=== PATIENT | male | born 1975 | race African-American/Black ===

== ENCOUNTER 2023-07-28 18:26 | Observation (INO) | payer SELFPAY ==
[2023-07-28] VITALS (7 sets, daily range): BP systolic 117–170; BP diastolic 69–87; PULSE 72–98; RESP 13–20; TEMP 36.7–37.3; O2SAT 95–98; BMI 36.2; BMI 36.1
--- NOTE | 2023-07-28 18:26 | ECG_ITS ---
APPROVED REPORT Exam: Resting ECG HR:97 bpm ECG Measurements Heart Rate 97 AXES MT 154 P 59 QRSd 105 QRS -74 QT 336 T 103 QTc 391 Conclusion Sinus rhythm LVH Left atrial enlargement Incomplete right bundle branch block Left anterior fascicular block Ischemic change with T wave inversions in 1 and aVL, concern for convex ST changes in V3 Electronically signed by : MARTIR DESHPANDE, 07/28/2023 20:45:46
--- NOTE | 2023-07-28 18:29 | XR_ITS ---
PROCEDURE INFORMATION: Exam: XR Chest Exam date and time: 07/28/2023 6:38 PM Age: 48 years old Clinical indication: Other: Chest pain; Additional info: Cp TECHNIQUE: Imaging protocol: Radiologic exam of the chest. Views: 1 view. COMPARISON: No relevant prior studies available. FINDINGS: Lungs: Pleuroparenchymal scarring of the lung bases with subsegmental atelectasis is present without consolidations or pleural effusions that project above the diaphragm. Pleural spaces: Unremarkable. No pleural effusion. No pneumothorax. Heart/Mediastinum: Unremarkable. No cardiomegaly. Bones/joints: Unremarkable. IMPRESSION: Pleuroparenchymal scarring of the lung bases with subsegmental atelectasis is present without consolidations or pleural effusions that project above the diaphragm.
--- NOTE | 2023-07-28 18:43 | CT_ITS ---
PROCEDURE INFORMATION: Exam: CTA Chest With Contrast Exam date and time: 07/28/2023 8:10 PM Age: 48 years old Clinical indication: Pain; Chest pressure; Additional info: Cp to back, aortic mumur TECHNIQUE: Imaging protocol: Computed tomographic angiography of the chest with contrast. Exam focused on the arteries. 3D rendering (Not supervised by radiologist): MIP and/or 3D reconstructed images were created by the technologist. Radiation optimization: All CT scans at this facility use at least one of these dose optimization techniques: automated exposure control; mA and/or kV adjustment per patient size (includes targeted exams where dose is matched to clinical indication); or iterative reconstruction. Contrast material: ISOVUE; Contrast volume: 90 ml; Contrast route: INTRAVENOUS (IV); COMPARISON: CR XR CHEST PORTABLE 07/28/2023 6:38 PM FINDINGS: Pulmonary arteries: No CT angiography evidence of pulmonary embolism. Aorta: Unremarkable. No aortic aneurysm. No aortic dissection. Lungs: Unremarkable. No consolidation. No masses. Pleural spaces: Unremarkable. No pneumothorax. No pleural effusion. Heart: Unremarkable. No cardiomegaly. No pericardial effusion. Lymph nodes: Unremarkable. No enlarged lymph nodes. Bones/joints: Multinodular thyroid goiter with right thyroid lobe measuring 12.4 cm craniocaudal by 3.8 cm AP x 4.3 cm transverse, and results in partial obstruction of the thoracic outlet, and mass effect on the trachea and right vessels exiting the thoracic outlet. Soft tissues: Unremarkable. IMPRESSION: 1. Multinodular thyroid goiter with right thyroid lobe measuring 12.4 cm craniocaudal by 3.8 cm AP x 4.3 cm transverse, and results in partial obstruction of the thoracic outlet, and mass effect on the trachea and right vessels exiting the thoracic outlet. Recommend further evaluation with ultrasound for possible FNA analysis. 2. No CT angiography evidence of pulmonary embolism.
--- NOTE | 2023-07-28 18:43 | CT_ITS ---
PROCEDURE INFORMATION: Exam: CTA Neck With Contrast Exam date and time: 07/28/2023 8:05 PM Age: 48 years old Clinical indication: Other: Confusion; Additional info: Cp confusion and BEAVERS, L leg weakness TECHNIQUE: Imaging protocol: Computed tomographic angiography of the neck with contrast. Exam focused on the cervical segments of the vasculature. 3D rendering (Not supervised by radiologist): MIP and/or 3D reconstructed images were created by the technologist. Radiation optimization: All CT scans at this facility use at least one of these dose optimization techniques: automated exposure control; mA and/or kV adjustment per patient size (includes targeted exams where dose is matched to clinical indication); or iterative reconstruction. Contrast material: ISOVUE; Contrast volume: 90 ml; Contrast route: INTRAVENOUS (IV); COMPARISON: CT ANGIO HEAD 07/28/2023 8:05 PM FINDINGS: Right common carotid artery: Moderate calcific atherosclerotic disease of the right carotid bulb without significant stenosis. Right internal carotid artery: No stenosis of the extracranial segment. No dissection or occlusion. Right external carotid artery: No occlusion or stenosis of the origin. Left common carotid artery: Moderate calcific atherosclerotic disease of the left carotid bulb without significant stenosis. Left internal carotid artery: No stenosis of the extracranial segment. No dissection or occlusion. Left external carotid artery: No occlusion or stenosis of the origin. Right vertebral artery: No stenosis. No dissection or occlusion. Left vertebral artery: No stenosis. No dissection or occlusion. Soft tissues: Normal. No significant soft tissue swelling. Bones/joints: Multinodular thyroid goiter with right thyroid lobe measuring 12.4 cm craniocaudal by 3.8 cm AP x 4.3 cm transverse, and results in partial obstruction of the thoracic outlet. IMPRESSION: 1. No significant stenosis. No evidence of dissection. 2. Multinodular thyroid goiter with right thyroid lobe measuring 12.4 cm craniocaudal by 3.8 cm AP x 4.3 cm transverse, and results in partial obstruction of the thoracic outlet. Recommend further evaluation with ultrasound for possible FNA analysis. REFERENCES: NASCET CRITERIA. The degree of stenosis in the cervical segment of the internal carotid artery is based on NASCET criteria. Normal is no stenosis. Mild is less than 50% stenosis. Moderate is 50-69% stenosis. Severe is 70% to 99% stenosis. Total occlusion is no detectable patent lumen.
--- NOTE | 2023-07-28 18:43 | CT_ITS ---
PROCEDURE INFORMATION: Exam: CTA Head With Contrast, Arteriography Exam date and time: 07/28/2023 8:05 PM Age: 48 years old Clinical indication: Other: Confusion; Additional info: Cp confusion and BEAVERS, L leg weakness TECHNIQUE: Imaging protocol: Computed tomographic angiography of the head with contrast. Exam focused on the arteries. 3D rendering (Not supervised by radiologist): MIP and/or 3D reconstructed images were created by the technologist. Radiation optimization: All CT scans at this facility use at least one of these dose optimization techniques: automated exposure control; mA and/or kV adjustment per patient size (includes targeted exams where dose is matched to clinical indication); or iterative reconstruction. Contrast material: ISOVUE; Contrast volume: 90 ml; Contrast route: INTRAVENOUS (IV); COMPARISON: CT HEAD/BRAIN WO CON 07/28/2023 8:02 PM FINDINGS: ANTERIOR CIRCULATION: Right internal carotid artery: Severe calcified and noncalcified atherosclerotic disease of the right intracranial ICA resulting in severe stenosis of the ophthalmic and clinoid segments. Right middle cerebral artery: No occlusion or significant stenosis. No aneurysm. Right anterior cerebral artery: No occlusion or significant stenosis. No aneurysm. Left internal carotid artery: Intracranial segment is patent with no significant stenosis. No aneurysm. Left middle cerebral artery: No occlusion or significant stenosis. No aneurysm. Left anterior cerebral artery: No occlusion or significant stenosis. No aneurysm. POSTERIOR CIRCULATION: Right vertebral artery: No occlusion or significant stenosis. No aneurysm. Left vertebral artery: No occlusion or significant stenosis. No aneurysm. Basilar artery: No occlusion or significant stenosis. No aneurysm. Right posterior cerebral artery: No occlusion or significant stenosis. No aneurysm. Left posterior cerebral artery: No occlusion or significant stenosis. No aneurysm. Brain: No definite mass, mass effect, or midline shift. Cerebral ventricles: No ventriculomegaly. Bones/joints: Unremarkable. No acute fracture. Soft tissues: Unremarkable. IMPRESSION: Severe calcified and noncalcified atherosclerotic disease of the right intracranial ICA resulting in severe stenosis of the ophthalmic and clinoid segments.
--- NOTE | 2023-07-28 18:43 | CT_ITS ---
PROCEDURE INFORMATION: Exam: CT Head Without Contrast Exam date and time: 07/28/2023 8:02 PM Age: 48 years old Clinical indication: Other: Confusion; Additional info: Cp confusion and BEAVERS, L leg weakness TECHNIQUE: Imaging protocol: Computed tomography of the head without contrast. Radiation optimization: All CT scans at this facility use at least one of these dose optimization techniques: automated exposure control; mA and/or kV adjustment per patient size (includes targeted exams where dose is matched to clinical indication); or iterative reconstruction. COMPARISON: No relevant prior studies available. FINDINGS: Brain: Normal. No hemorrhage. Unremarkable white matter. No mass effect. Cerebral ventricles: No ventriculomegaly. Paranasal sinuses: Visualized sinuses are unremarkable. No fluid levels. Mastoid air cells: Visualized mastoid air cells are well aerated. Bones: Unremarkable. No acute fracture. Soft tissues: Unremarkable. IMPRESSION: No acute intracranial abnormality.
[2023-07-28] MEDS: ASPIRIN 81MG CHEWABLE TABLET 324 MG PO (18:44)
--- NOTE | 2023-07-28 18:46 | ECG_ITS ---
APPROVED REPORT Exam: Resting ECG HR:76 bpm ECG Measurements Heart Rate 76 AXES NE 159 P 59 QRSd 107 QRS -73 QT 363 T 114 QTc 393 Conclusion Sinus rhythm LVH Left atrial enlargement Left anterior fascicular block Concern for septal [place] with T wave inversions in 1 and aVL with convex changes in V3 Appears dynamically improved from previous Electronically signed by : MARTIR DESHPANDE, 07/28/2023 20:47:07
[2023-07-28] MEDS: LABETALOL 20MG/4ML SYRINGE 20 MG IV (18:53)
[2023-07-28 18:56] LABS: Basophils # 0.3 K/mm3 (0-0.2); Basophils % 3.2 % (0.1-2.0); Eosinophils # 0.1 K/mm3 (0.0-0.4); Eosinophils % 0.6 % (0.1-12.0); Hematocrit 45.3 % (42.0-52.0); Hemoglobin 14.6 g/dL (14.1-18.0); Lymphocytes # 1.4 K/mm3 (0.7-4.5); Mean Corpuscular HGB Conc 32.3 g/dL (31.8-35.4); Mean Corpuscular Hemoglobin 28.5 pg (27.0-31.2); Mean Corpuscular Volume 88.3 fl (80-94); Mean Platelet Volume 7.9 fl (7.4-10.4); Monocytes # 0.8 K/mm3 (0.1-1.0); Monocytes % 7.6 % (1.7-9.3); Neutrophils # 8.1 K/mm3 (1.8-7.8); Neutrophils % 75.6 % (37.0-80.0); Platelet Count 194 K/mm3 (142-424); Red Blood Count 5.14 M/mm3 (4.60-6.20); Red Cell Distribution Width 14.8 % (11.5-17.5); White Blood Count 10.7 K/mm3 (4.8-10.8)
--- NOTE | 2023-07-28 18:59 | PC.NURSE ---
Dr. Khan spoke with Dr. Brown.
[2023-07-28 19:02] LABS: Chloride 102 mmol/L (98-107); Potassium 3.7 mmoL/L (3.5-5.1); Sodium 137 mmol/L (136-145)
[2023-07-28 19:04] LABS: Alanine Aminotransferase 27 U/L (12-78); Aspartate Amino Transferase 30 U/L (17-59); Blood Urea Nitrogen 13 mg/dl (9-20); Creatinine Clearance Estimated 149 mL/min (50-200); Estimated Glomerular Filt Rate 71 ml/min (>60); GFR (African American) 86 ML/MIN (>60)
[2023-07-28 19:05] LABS: Albumin Level 4.4 g/dl (3.5-5.0); Albumin/Globulin Ratio 1.3 (1.1-1.8); Alkaline Phosphatase 53 U/L (38-126); Anion Gap 12.7 mEq/L (5-15); Bilirubin,Total 0.6 mg/dl (0.2-1.3); Calcium 9.2 mg/dl (8.4-10.2); Carbon Dioxide 26 mmol/L (22.0-30.0); Globulin 3.3 g/dL (1.3-3.2); Glucose 138 mg/dl (74-100); HDL Cholesterol 29 mg/dl (40-60); Lipase 43 U/L (23-300); Magnesium 1.2 mg/dl (1.6-2.3); Total Protein,Serum 7.7 g/dl (6.3-8.2)
[2023-07-28 19:06] LABS: Cholesterol 202 mg/dl (140-200); Triglycerides 89 mg/dl (30-150); VLDL Cholesterol 18 mg/dL (0-40)
[2023-07-28 19:17] LABS: Direct LDL Cholesterol 137.12 mg/dL (100-129); NT Pro Brain Natriuretic Pep. 964 pg/mL (0-125)
[2023-07-28 19:20] LABS: Troponin I 0.04 ng/ml (0.00-0.034)
[2023-07-28] MEDS: MAGNESIUM OXIDE 400MG TABLET 800 MG PO (19:21)
[2023-07-28] MEDS: ACETAMINOPHEN 500MG TAB 1000 MG PO (19:22)
[2023-07-28] MEDS: diphenhydrAMINE 50MG/ML VIAL 25 MG IV (19:26)
--- NOTE | 2023-07-28 19:26 | [facility].EDCP ---
Discharge Plan Disposition Patient Disposition: Admitted Clinical Impressions Clinical Impression: Stable angina, Intracranial vascular stenosis, Mass of thyroid gland Discharge ED Provider: Moustapha Khan [facility] General Chief Complaint: Chest Pain Stated Complaint: Chest Pain Time Seen by Provider: 07/28/23 18:28 Mode of Arrival: Ambulatory Source of Information: Patient Limitations: No Limitations Description of Symptoms (Recalled from ER Triage Doc. by RN): pt reports epigastric chest pain that started around 1pm today, states it is a constant, sharp pain rating it 8/10, states he was resting when it started, states there is also pain in L side of his neck and lower back, hx of enlarged heart and murmur, has had a cath in the past with no stents placed around 2019, also thinks he has a small TIA thursday because he had an episode where he was mumbling, words not making sense, eyes rolled back in his head per , eyes were moving side to side, and his L leg hurt, is supposed to take daily medications but hasn't in about 3 years due to no insurance History of Present Illness HPI narrative: Please note that above description of symptoms, in this electronic medical record under categorization of recalled from ER triage doctor by RN are reflective of an initial nursing assessment, however, is not reflective of my full history and physical exam that was personally taken and clarified. Consequentially, this preceding description of symptoms, which may include the patient's categorized chief complaint in the EMR, do not reflect my personal clinical impression, and the ultimate description of history of present illness and patient stated complaints should be deferred to this section of the note. Unless stated otherwise or congruent with this section of the note, additional signs, symptoms, or incongruence should be interpreted as inaccurate with my clinical impression. Related Data Allergies Allergy/AdvReac Type Severity Reaction Status Date / Time HYDROCODONE Allergy Unknown SWELLING Uncoded 02/17/17 14:23 INGREDIENT: NO KNOWN - NO Allergy Unknown Uncoded 02/17/17 14:23 KNOWN DRUG [facility] Disclaimer: The information contained in this section may have been updated after the patient was seen, as this information can be updated by other users. Social History Smoking Status: Current every day smoker alcohol intake: current current occupational status: unemployed Travel in the last 8 weeks: None ROS Obtained: Yes All systems reviewed & no additional complaints except as documented Physical Exam General General appearance: alert Neck Neck exam: Present trachea midline Chest Chest inspection: Present normal inspection and symmetric chest wall rise Respiratory Respiratory exam: Present normal lung sounds bilaterally; Absent respiratory distress, wheezes, stridor, accessory muscle use or prolonged expiratory phase Cardiovascular Cardiovascular exam: Present regular rate and normal rhythm Extremities Exam Extremities exam: Absent edema Neurological Exam Neurological exam: Present alert, oriented X3 and CN II-XII intact Skin Skin exam: Present warm and dry; Absent cyanosis, diaphoresis or pallor HEART Score HEART Score HEART Score assessment performed?: Yes HEART Score: 7 Critical Care Critical Care Time Critical Care Time: Yes (CV) Attestation: On 07/28/23, the high probability of a clinically significant, sudden or life threatening deterioration of the following system(s) required my full and direct attention, intervention and personal management. The time I documented below is in addition to time spent performing reported procedures but includes the following listed in this critical care notation. Total Time Total Critical Care Time: 60 Medical Decision Making Medical Records Medical records reviewed: Yes I reviewed the patient's medical records. [place] Inquiry Pt receiving controlled substance: No [place] was queried for this patient: No Vital Signs Vital Signs: 07/28/23 18:27 07/28/23 18:53 07/28/23 18:59 Temperature 99.1 F Temperature Source Oral Pulse Rate 98 H Pulse Rate [Left Radial] 98 H Respiratory Rate 18 Blood Pressure 170/87 H Blood Pressure [Right Arm] 154/86 H Blood Pressure Mean [Right Arm] 108 Blood Pressure Source [Right Arm] Automatic Cuff Blood Pressure Position [Right Arm] Sitting 02 Sat by Pulse Oximetry 95 Oxygen Delivery Method Room Air 07/28/23 19:00 07/28/23 19:30 07/28/23 22:20 Temperature 98.0 F Temperature Source Pulse Rate 82 84 72 Pulse Rate [Left Radial] Respiratory Rate 20 13 20 Blood Pressure 127/70 129/72 118/78 Blood Pressure [Right Arm] Blood Pressure Mean [Right Arm] Blood Pressure Source [Right Arm] Blood Pressure Position [Right Arm] 02 Sat by Pulse Oximetry 97 95 Oxygen Delivery Method Room Air Room Air Room Air Lab Data Labs: Lab Results 07/28/23 18:40: WBC 10.7, RBC 5.14, Hgb 14.6, Hct 45.3, MCV 88.3, MCH 28.5, MCHC 32.3, RDW 14.8, Plt Count 194, MPV 7.9, Neut % (Auto) 75.6, Lymph % (Auto) 13.0, Nobles % (Auto) 7.6, Eos % (Auto) 0.6, Baso % (Auto) 3.2 H, Neut # (Auto) 8.1 H, Lymph # (Auto) 1.4, Nobles # (Auto) 0.8, Eos # (Auto) 0.1, Baso # (Auto) 0.3 H, Sodium 137, Potassium 3.7, Chloride 102, Carbon Dioxide 26, Anion Gap 12.7, BUN 13, Creatinine 1.10, Estimated Creat Clear 149, Estimated GFR 71, Est GFR ( Amer) 86, Glucose 138 H, Calcium 9.2, Magnesium 1.2 L, Total Bilirubin 0.6, AST 30, ALT 27, Alkaline Phosphatase 53, Troponin I 0.04 H, NT-Pro-B Natriuret Pep 964 H, Total Protein 7.7, Albumin 4.4, Globulin 3.3 H, Albumin/Globulin Ratio 1.3, Triglycerides 89, Cholesterol 202 H, LDL Cholesterol Direct 137.12 H, VLDL Cholesterol 18, HDL Cholesterol 29 L, Cholesterol/HDL Ratio 7.0 H, Lipase 43, TSH 0.06 L, Thyroxine (T4) 6.2 07/28/23 21:27: Troponin I 0.05 H 07/28/23 18:40 07/28/23 18:40 Response Orders (Tests/Meds): ED MEDICATIONS Generic Name Dose Route Start Last Admin Trade Name Freq PRN Reason Stop Dose Admin Acetaminophen 650 mg 07/28/23 22:13 Acetaminophen 325mg Tab PO 08/27/23 22:12 Q4HP PRN Fever or Mild Pain (1-3) Al Hydrox/Mg Hydrox/Simethicone 30 ml 07/28/23 22:13 Aluminum/Magnesium/Simethicone 30ml Udc PO 08/27/23 22:12 QIDP PRN Dyspepsia Enoxaparin Sodium 40 mg 07/29/23 09:00 Enoxaparin 40mg/0.4ml Syringe SQ 08/28/23 08:59 DAILY YVES Sodium Chloride 1,000 mls @ 75 mls/hr 07/28/23 22:15 Sod Chlor 0.9% 1000ml Bag IV 08/27/23 22:14 .[id number] YVES Morphine Sulfate 2 mg 07/28/23 22:13 Morphine 2mg/Ml Syringe IV 08/27/23 22:12 Q2HP PRN Severe Pain (7-10) Ondansetron HCl 4 mg 07/28/23 22:13 Ondansetron 4mg/2ml Vial IV 08/27/23 22:12 Q8HP PRN Nausea Pantoprazole Sodium 40 mg 07/29/23 09:00 Pantoprazole 40mg Tablet PO 08/28/23 08:59 DAILY YVES Sodium Chloride 10 ml 07/28/23 20:18 07/28/23 20:19 Sodium Chloride 0.9% 10ml Syr (Rad Only) IV 08/27/23 20:17 10 ml NEEDED PRN Administration Maintain IV Site Sodium Chloride 10 ml 07/28/23 22:13 Sodium Chloride 0.9% 10ml Flush Syringe IV 08/27/23 22:12 NEEDED PRN Maintain IV Site Discontinued Medications Generic Name Dose Route Start Last Admin Trade Name Freq PRN Reason Stop Dose Admin Acetaminophen 1,000 mg 07/28/23 19:07 07/28/23 19:22 Acetaminophen 500mg Tab PO 07/28/23 19:08 1,000 mg ONCE ONE Administration Aspirin 324 mg 07/28/23 18:29 07/28/23 18:44 Aspirin 81mg Chewable Tablet PO 07/28/23 18:30 324 mg ONCE ONE Administration Diphenhydramine HCl 25 mg 07/28/23 19:07 07/28/23 19:26 Diphenhydramine 50mg/Ml Vial IV 07/28/23 19:08 25 mg ONCE ONE Administration Magnesium Sulfate 2 gm in 50 mls @ 50 mls/hr 07/28/23 19:07 07/28/23 19:27 Magnesium Sulfate 2gm/50ml Premix IV 07/28/23 20:06 50 mls/hr ONCE ONE Administration Iopamidol 180 ml 07/28/23 20:18 07/28/23 20:19 Iopamidol-370 (76%);100ml Bottle IV 07/28/23 20:19 180 ml ONCE ONE Administration Ketorolac Tromethamine 15 mg 07/28/23 19:07 07/28/23 19:27 Ketorolac 30mg/Ml Vial IV 07/28/23 19:08 15 mg ONCE ONE Administration Labetalol HCl 20 mg 07/28/23 18:43 07/28/23 18:53 Labetalol 20mg/4ml Syringe IV 07/28/23 18:44 20 mg ONCE ONE Administration Magnesium Oxide 800 mg 07/28/23 19:07 07/28/23 19:21 Magnesium Oxide 400mg Tablet PO 07/28/23 19:08 400 mg ONCE ONE Administration Prochlorperazine Edisylate 10 mg 07/28/23 19:07 07/28/23 19:27 Prochlorperazine 10mg/2ml Vial IV 07/28/23 19:08 10 mg ONCE ONE Administration Sodium Chloride 100 ml 07/28/23 20:18 07/28/23 20:19 0.9 % Sodium Chloride 50 Ml Vial IV 07/28/23 20:19 100 ml ONCE ONE Administration ORDERS Category Date Time Status CT angio chest - dissection Stat Cat Scan 07/28/23 18:[address] angio head Stat Cat Scan 07/28/23 18:[address] angio neck Stat Cat Scan 07/28/23 18:[address] head/brain wo con Stat Cat Scan 07/28/23 18:43 Completed XR chest portable Stat Exams 07/28/23 18:29 Completed Complete Blood Count Auto Diff Stat Lab 07/28/23 18:40 Completed Comprehensive Metabolic Panel Stat Lab 07/28/23 18:40 Completed Lipase Stat Lab 07/28/23 18:40 Completed Lipid Panel Stat Lab 07/28/23 18:40 Completed Magnesium Stat Lab 07/28/23 18:40 Completed NT Pro Brain Natriuretic Pep. Stat Lab 07/28/23 18:40 Completed T4 (Thyroxine) Stat Lab 07/28/23 18:40 Completed TSH [Thyroid Stimulating Hormone] Stat Lab 07/28/23 18:40 Completed Troponin I Q3H Lab 07/28/23 21:27 Completed Troponin I Q3H Lab 07/29/23 00:30 Ordered Troponin I Stat Lab 07/28/23 18:40 Completed MDM Narrative Medical Decision Narrative: This is a 48-year-old male with history of hypertension, hyperlipidemia, type 2 diabetes, enlarged heart, presenting with multiple complaints. Patient states that his chief complaint is chest pain. It started around 1 PM just a couple hours prior to arrival. It was at rest. It is exertional, nonpositional. Associated with shortness of breath and nausea without vomiting. No diaphoresis. States that a few days prior to this, he also had episode where his right hand clenched, left lower extremity felt weak, had difficulty finding words and this lasted for couple minutes, but self abated. Also states that he has had a cough productive of green sputum, intermittent bright red blood per rectum (not currently present), among a host of other complaints. States that he has not taken any medications for any of his ailments in over 2 years due to insurance issues. Patient's medical noncompliance is likely impacting and complicating care. History was obtained via conversation with patient. On arrival, patient hemodynamically stable, alert, oriented x4, appropriate, GCS 15, moving all extremities spontaneously, pupils equal and reactive to light. Full physical exam performed and significant for well-appearing male no acute distress. Cardiac exam with right upper sternal border murmur, pulses are equal and symmetric in upper and lower extremities. Patient is neurologically intact clinic cranial nerve, cerebellar, motor and sensory exams. Lungs are clear to auscultation bilaterally anterior and posteriorly. No lower extremity edema. Differential includes microvascular coronary artery disease, CHF, ACS, IA, coronary artery dissection, pneumothorax, PE, dissection, pericarditis, myocarditis, pneumothorax, aortic aneurysm, pneumonia, bronchitis, among others. Patient was given aspirin, Tylenol, Toradol, Compazine, Benadryl, labetalol for symptomatic management and correction of underlying abnormalities. Workup independently interpreted and significant for initial troponin elevated 0.04. Magnesium low, this was repleted. Nonactionable chemistry otherwise or CBC. BMP nonactionable. Chest x-ray without acute cardiopulmonary airspace disease. CTA chest without dissection, patient does have large right thyroid mass which he knew about. CTA of the chest, neck, head with right-sided vascular stenoses, patient asymptomatic at this time. No acute intracranial hemorrhage. See radiology read for full review of final results. Independent interpretation of EKG shows sinus rhythm 97 beats minute. T wave inversions in 1 and aVL with concern for convexity and mild ST elevation in V3. Intervals within normal limits. Patient placed on continuous cardiac monitoring and continuous pulse ox with initial blood pressure 154/86, heart rate 98, saturation 95 on room air. Repeat EKG 20 minutes later with similar findings, no dynamic change. Heart score. Cardiology was contacted and case was discussed at length, recommended aspirin, blood pressure control, reevaluation, I feel this is appropriate. On reevaluation, patient resting comfortably, stating he feels much better and is without pain. Blood pressure 129/72, pulse rate 70. Patient was placed in observation beginning at 7:30 PM in order to rule out evolving IA with delta troponins and determine need for admission versus home-going. The patient was provided cardiac monitoring, serial exams, CTs while awaiting results. Repeat EKG about an hour after initial with similar findings. T wave inversions which appear to be improving in 1 and aVL. Independent interpretation of results demonstrated delta troponin 0.05. On reevaluation, patient still not having chest pain, resting comfortably on initial evaluation being woken up, feels better. At this time, I feel patient is appropriate for admission and catheterization. Total observation time 3 hours. Military Analyst disclaimer Much of this encounter note is an electronic paintless dent repair technician spoken language to printed text. Electronic paintless dent repair technician of the spoken language may permit errors. Although I have reviewed the note, some errors may still exist.
[2023-07-28] MEDS: MAGNESIUM SULFATE IN WATER 2 GM/50 ML PIGGYBACK IV (19:27)
[2023-07-28] MEDS: PROCHLORPERAZINE 10MG/2ML VIAL 10 MG IV (19:27)
[2023-07-28] MEDS: KETOROLAC 30MG/ML VIAL 15 MG IV (19:27)
--- NOTE | 2023-07-28 19:45 | ECG_ITS ---
APPROVED REPORT Exam: Resting ECG HR:94 bpm ECG Measurements Heart Rate 94 AXES OR 154 P 51 QRSd 106 QRS -74 QT 344 T 106 QTc 396 Conclusion Sinus rhythm LVH Left atrial enlargement Left anterior fascicular block Concern for septal [place] with T wave inversions in 1 and aVL with convex changes in V3 No dynamic change from previous Electronically signed by : MARTIR DESHPANDE, 07/28/2023 20:46:42
[2023-07-28] MEDS: IOPAMIDOL-370 (76%);100ML BOTTLE 180 ML IV (20:19)
[2023-07-28] MEDS: SODIUM CHLORIDE 0.9% 10ML SYR (RAD ONLY) 10 ML IV (20:19)
[2023-07-28] MEDS: 0.9 % SODIUM CHLORIDE 50 ML VIAL 100 ML IV (20:19)
--- NOTE | 2023-07-28 20:23 | PC.NURSE ---
urine collected and sent to lab
[2023-07-28 21:59] LABS: T4 (Thyroxine) 6.2 ug/dl (5.53-11.0)
[2023-07-28 22:03] LABS: Troponin I 0.05 ng/ml (0.00-0.034)
--- NOTE | 2023-07-28 22:07 | PC.NURSE ---
per hospital medicine patient has been accepted for chest pain and elevated troponin. called house repairer for a bed a placed bed request in
[2023-07-28 22:13] LABS: Thyroid Stimulating Hormone 0.06 uIU/mL (0.465-4.68)
--- NOTE | 2023-07-28 22:13 | P.HP_ITS ---
History of Present Illness *Admission Date: 07/28/23 *Reason for visit:: CP *History of present illness: This is a 48-year-old male with history of hypertension, hyperlipidemia, type 2 diabetes, presumed CHF, hypothyroidism, medical non complaint presented to ED for evaluation of chest pain. It started around 1 PM just a couple hours prior to arrival. It was at rest. It is exertional, nonpositional. Associated with shortness of breath and nausea without vomiting. No diaphoresis. States that a few days prior to this, he also had episode where his right hand clenched, left lower extremity felt weak, had difficulty finding words and this lasted for couple minutes. patient admitted for further work up. [facility] Disclaimer: The information contained in this section may have been updated after the patient was seen, as this information can be updated by other users. Medical History (Updated 07/29/23 @ 06:55 by Joni Spring APRN) History of left heart catheterization (LHC) Heart murmur Cardiomyopathy Sleep apnea Hyperlipemia Hypertension Diabetes Surgical History (Updated 07/28/23 @ 22:58 by Sofia Loving RN) H/O rotator cuff surgery History of thyroidectomy History of total right knee replacement Family History (Updated 07/28/23 @ 22:59 by Sofia Loving RN) Other Family history of hyperlipidemia Family history of hypertension Social History (Updated 07/28/23 @ 22:30 by Moustapha Khan MD) Smoking Status: Current every day smoker alcohol intake: current current occupational status: unemployed Travel in the last 8 weeks: None Review of Systems Review of Systems Review of systems:: pertinent systems reviewed and negative unless documented below Meds Home Medications and Allergies New Prescriptions to Start Prescriptions: Allergies Allergy/AdvReac Type Severity Reaction Status Date / Time No Known Allergies Allergy Verified 07/28/23 23:28 Exam Data for Last 24 hours Vital signs and Labs for Last 24 Hours: Temp Pulse Resp BP Pulse Ox O2 Del Method 99.1 F 84 13 129/72 95 Room Air 07/28/23 18:27 07/28/23 19:30 07/28/23 19:30 07/28/23 19:30 07/28/23 19:30 07/28/23 19:30 Laboratory Results - last 24 hr 07/28/23 18:40: WBC 10.7, RBC 5.14, Hgb 14.6, Hct 45.3, MCV 88.3, MCH 28.5, MCHC 32.3, RDW 14.8, Plt Count 194, MPV 7.9, Neut % (Auto) 75.6, Lymph % (Auto) 13.0, [place] % (Auto) 7.6, Eos % (Auto) 0.6, Baso % (Auto) 3.2 H, Neut # (Auto) 8.1 H, Lymph # (Auto) 1.4, Dyer # (Auto) 0.8, Eos # (Auto) 0.1, Baso # (Auto) 0.3 H, Sodium 137, Potassium 3.7, Chloride 102, Carbon Dioxide 26, Anion Gap 12.7, BUN 13, Creatinine 1.10, Estimated Creat Clear 149, Estimated GFR 71, Est GFR ( Amer) 86, Glucose 138 H, Calcium 9.2, Magnesium 1.2 L, Total Bilirubin 0.6, AST 30, ALT 27, Alkaline Phosphatase 53, Troponin I 0.04 H, NT-Pro-B Natriuret Pep 964 H, Total Protein 7.7, Albumin 4.4, Globulin 3.3 H, Albumin/Globulin Ratio 1.3, Triglycerides 89, Cholesterol 202 H, LDL Cholesterol Direct 137.12 H, VLDL Cholesterol 18, HDL Cholesterol 29 L, Cholesterol/HDL Ratio 7.0 H, Lipase 43, Thyroxine (T4) 6.2 07/28/23 21:27: Troponin I 0.05 H I & O for Last 24 hours: Intake & Output 07/25/23 07/26/23 07/27/23 07/28/23 23:59 23:59 23:59 23:59 Weight 131.542 kg Constitutional Constitutional: mild distress, obese and somnolent *Routine HEENT Exam Head: Present normocephalic Eye: Present EOMI and PERRL ENT: Present mucous membranes moist *Routine Neck Exam Neck: Present supple and full ROM; Absent lymphadenopathy *Routine Respiratory Exam Respiratory: Present CTA bilaterally *Routine Cardiovascular Exam Cardiovascular: Present RRR, Normal S1, Normal S2 and murmur *Routine Abdominal Exam Abdominal: Present soft and normoactive bowel sounds; Absent tenderness *Routine Rectal Exam Rectal:: deferred *Routine Genitalia Exam Genitalia:: deferred *Routine Extremities Exam Extremities: Absent cyanosis, clubbing or edema *Routine Skin Exam Skin: Present warm; Absent rash *Routine Neurological Exam Neurological: Present alert, oriented X3, normal reflexes and moving all extremities Routine Psychiatric Exam Psychiatric: Present normal affect H&P: Result Imaging and Cardiology CT scan - chest: Status: image reviewed by me, Preliminary report and final report CT scan - head: Status: image reviewed by me, Preliminary report and final report Chest x-ray: Status: image reviewed by me, Preliminary report and final report Assessment and Plan *Assessment and plan (1) Stable angina: Status: Acute Category: Medical Code(s): I20.89 - Other forms of angina pectoris (2) Mass of thyroid gland: Status: Acute Category: Medical Code(s): E07.9 - Disorder of thyroid, unspecified (3) Hypertension: Status: Acute Qualifiers: Hypertension type: unspecified Qualified Code(s): I10 - Essential (primary) hypertension Category: Medical Code(s): I10 - Essential (primary) hypertension (4) Sleep apnea: Status: Acute Qualifiers: Sleep apnea type: unspecified type Qualified Code(s): G47.30 - Sleep apnea, unspecified Category: Medical Code(s): G47.30 - Sleep apnea, unspecified (5) Obesity (BMI 30-39.9): Status: Acute Category: Medical Code(s): E66.9 - Obesity, unspecified Plan 48-year-old male with history of hypertension, hyperlipidemia, type 2 diabetes, presumed CHF, hypothyroidism, medical non complaint presented to ED for evaluation of chest pain. It started around 1 PM just a couple hours prior to arrival. on arrival received loading aspirin, EKG showed non specific ST changed. CTA chest negative for PE. troponin slightly moved. Cardiology consulted. discussed with ED. Agreed for admission. Plan as follow: -stable angina: presented with chest pain, elevated troponin, to r/o ACS: Admit patient for cardiac telemetry Cardiology consult Monitor for chest pain Vital signs per unit protocol Nitroglycerin as needed for chest pain Keep n.p.o. after midnight for possible cardiac catheterization Trending troponin Repeat labs in the morning Obtain lipid panel, A1c, vitamin D to assess cardiac risk -Multinodular thyroid disease: Right thyroid lobe mass, Patient has a history of hypothyroidism, partial thyroidectomy. CTA of the chest and neck presented with large mass, initially concern for TOS. Currently asymptomatic. No signs of neurologic or arterial or venous thoracic outlet syndrome Ultrasound of neck. Might need FNA Repeat TSH T3 and thyroid panel -Hypertension: Has been not on any medication for longer than 3 years Continue monitoring to complete baseline History of sleep apnea CPAP noncompliant Respiratory therapy to assist with care Obesity Will complicate all aspects of care. Including increasing cardiac risk Lovenox for DVT prophylaxis On aspirin Protonix for GI bleed prophy Full code
--- NOTE | 2023-07-28 22:18 | PC.NURSE ---
called report to jasen noble and answered all questions
[2023-07-28] MEDS: 0.9 % SODIUM CHLORIDE 1000ML 1,000 ML 75 ML IV (23:22)
[2023-07-29] VITALS (24 sets, daily range): BP systolic 112–167; BP diastolic 56–98; PULSE 61–91; RESP 15–20; TEMP 36.4–39.6; O2SAT 89–99; BMI 36.1
--- NOTE | 2023-07-29 | US_ITS ---
FINAL REPORT CLINICAL HISTORY: rt thyroid fna -- gerard solares -- 4 passes FINDINGS: Ultrasound guided thyroid biopsy. HISTORY: . Enlarged TR 4 nodule in the right lobe of the thyroid. Attending radiologist: Dr. Flores Physician Tin Whiz Machine Operator: Gerard Mirza PA-C PROCEDURE: After informed consent was obtained and a time-out was performed, the patient was prepped and draped in usual sterile fashion over the left neck. Utilizing local anesthesia and sterile technique with a 25-gauge needle, access to lesion was obtained. A total of 4 passes were made under direct ultrasound guidance. The patient received no conscious sedation. The patient tolerated procedure well and left the department in good condition. IMPRESSION: Status post ultrasound guided biopsy of thyroid without immediate complication. Films reviewed , interpreted and dictated by Dr. Flores. Transcribed by Gerard Mirza PA-C. Reviewed, Interpreted and Dictated by Esteban Flores MD Transcribed by RIDDHI Saucedo Authenticated and [facility]
[2023-07-29 02:35] LABS: Troponin I 0.04 ng/ml (0.00-0.034)
[2023-07-29] MEDS: ACETAMINOPHEN 325MG TAB 650 MG PO ×2 (03:48→08:17)
--- NOTE | 2023-07-29 04:18 | PC.NURSE ---
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 pt has a fever of 103.2. lilliana curry aprn made aware. tylenol 650 mg po given
[2023-07-29 06:48] LABS: Basophils # 0.1 K/mm3 (0-0.2); Basophils % 1.1 % (0.1-2.0); Eosinophils # 0.1 K/mm3 (0.0-0.4); Eosinophils % 0.5 % (0.1-12.0); Hematocrit 43.5 % (42.0-52.0); Hemoglobin 13.9 g/dL (14.1-18.0); Lymphocytes # 2.2 K/mm3 (0.7-4.5); Lymphocytes % 19.2 % (10-50); Mean Corpuscular HGB Conc 31.9 g/dL (31.8-35.4); Mean Corpuscular Hemoglobin 28.2 pg (27.0-31.2); Mean Corpuscular Volume 88.5 fl (80-94); Mean Platelet Volume 7.8 fl (7.4-10.4); Monocytes # 1.1 K/mm3 (0.1-1.0); Monocytes % 9.9 % (1.7-9.3); Neutrophils # 7.8 K/mm3 (1.8-7.8); Neutrophils % 69.4 % (37.0-80.0); Platelet Count 171 K/mm3 (142-424); Red Blood Count 4.91 M/mm3 (4.60-6.20); Red Cell Distribution Width 14.7 % (11.5-17.5); White Blood Count 11.3 K/mm3 (4.8-10.8)
[2023-07-29 07:09] LABS: INR 1.16 (0.9-1.1); Prothrombin Time 12.4 seconds (10.1-12.5)
[2023-07-29 07:46] LABS: 25-OH Vitamin D, Total 22.4 ng/mL (30-100)
[2023-07-29 07:47] LABS: Free Thyroxine Index 1.7 ug/dL (5.93-13.13); T4 (Thyroxine) 5.3 ug/dl (5.53-11.0); Triiodothryronine (T3) Uptake 32 % (23.5-40.5)
[2023-07-29 07:50] LABS: Alanine Aminotransferase 20 U/L (12-78); Albumin Level 3.9 g/dl (3.5-5.0); Albumin/Globulin Ratio 1.2 (1.1-1.8); Alkaline Phosphatase 49 U/L (38-126); Anion Gap 11.5 mEq/L (5-15); Aspartate Amino Transferase 26 U/L (17-59); Bilirubin,Total 0.6 mg/dl (0.2-1.3); Blood Urea Nitrogen 14 mg/dl (9-20); Calcium 8.5 mg/dl (8.4-10.2); Carbon Dioxide 25 mmol/L (22.0-30.0); Chloride 105 mmol/L (98-107); Chol/HDL Ratio 7.2 (1-3.5); Cholesterol 181 mg/dl (140-200); Creatinine Clearance Estimated 165 mL/min (50-200); Estimated Glomerular Filt Rate 79 ml/min (>60); GFR (African American) 96 ML/MIN (>60); Globulin 3.2 g/dL (1.3-3.2); Glucose 110 mg/dl (74-100); HDL Cholesterol 25 mg/dl (40-60); Magnesium 1.7 mg/dl (1.6-2.3); Phosphorous 4.3 mg/dl (2.5-4.5); Potassium 3.5 mmoL/L (3.5-5.1); Sodium 138 mmol/L (136-145); Total Protein,Serum 7.1 g/dl (6.3-8.2); Triglycerides 87 mg/dl (30-150); VLDL Cholesterol 17 mg/dL (0-40)
[2023-07-29 08:00] LABS: Thyroid Stimulating Hormone 0.12 uIU/mL (0.465-4.68)
[2023-07-29 08:01] LABS: Direct LDL Cholesterol 124.93 mg/dL (100-129)
[2023-07-29] MEDS: ASPIRIN EC 81MG TABLET 81 MG PO (08:17)
--- NOTE | 2023-07-29 09:52 | CA_ITS ---
APPROVED REPORT EXAM: Comprehensive 2D, Doppler, and color-flow Echocardiogram General Foundry Worker: DEONTE Guerra, RVS Ht: 6 ft 3 in Wt: 291lbs BSA: 2.57 BP: 129/72 mmHg Indications: CP, Murmur, SOA, Elevated troponin, SHAHID, DM, HTN, HLD Echo Enhancing Agent Comments: TDS: due to patient factors 2D Dimensions IVSd 1.57 cm LVEF (Visual) 58.60 % PWd 1.60 cm LA Volume 136.40 mL LVDd 4.67 cm LA Volume Index 51.70 mL/m2 (M/F) 16-34 LVDs 3.24 cm Left Atrium 3.98 cm M-Mode Dimensions RVDd 3.68 cm (0.9-2.6) LVDd 4.63 cm (3.5-5.7) LVDs 2.43 cm (3.5-5.7) IVSd 1.75 cm (0.6-1.1) PWd 1.90 cm (0.6-1.1) EF (Teich) 78.90% EPSs 0.11 cm FS 47.50% EDV (Teich) 98.80 mL TAPSE 2.22 (<1.7) ESV (Teich) 20.80 mL LV Diastology E Decel Time 200 (160-240 msec) E/A Ratio 1.43 MED A' 7.70 cm/s LAT A' 7.00 cm/s Aortic Valve ALLY Index 1.06 cm2/m2 AoV Peak Luke. 300.0 (50-130 cm/s) AI PHT 523.00 ms AO Peak GR. 36.10 mmHg AO Mean GR. 17.70 (<5 mmHg) AO VTI 49.3 (18-25 cm) ALLY (VTI) 2.79 (2.5-4.5 cm2) Mitral Valve MV A Velocity 92.0 (40-130 cm/s) E/A Ratio 1.43 Pulmonary Valve PV Peak Velocity 88.0 (50-150 cm/s) Left Ventricle The left ventricle is normal size. The left ventricular systolic function is normal. The left ventricular ejection fraction is within the normal range. There is marked increase in LV wall thickness (IVSd 1.5 cm). There is increased LVOT gradient at rest (34 mmHg) and with Valsalva (40 mmHg). There is normal LV segmental wall motion. Diastolic function is indeterminate. LVEF is 60%. Right Ventricle The right ventricle is normal size. The right ventricular systolic function is normal. Atria Left atrium is moderately dilated. Right atrium is mildly dilated. There is no Doppler evidence of interatrial shunt. Aortic Valve The aortic valve opens well. There is no aortic valvular stenosis. Mild aortic regurgitation. Mitral Valve Systolic anterior motion (YULISA) of the MV leaflet with septal contact is present. There is moderate mitral annular calcification. The MV leaflets are mildly thickende. No evidence of mitral valve stenosis. Mean MV gradient 3 mmHg (HR 92 bpm). Mild mitral regurgitation. Tricuspid Valve The tricuspid valve leaflets are thin and pliable. Trace tricuspid regurgitation. There is insufficient TR jet to estimate RVSP. Pulmonic Valve The pulmonary valve is normal in structure. Trace pulmonic regurgitation. Great Vessels The aortic root is normal in size. The ascending aorta is not well visualized. IVC is normal in size and collapses >50% with inspiration. Pericardium There is no pericardial effusion. Other Information Study Quality: Fair Conclusion Normal biventricular systolic function. Marked increase in LV wall thickness (IVSd 1.5 cm). YULISA with septal contact is present. Increased LVOT gradient at rest (34 mmHg) and with Valsalva (40 mmHg). Biatrial dilation. Mild AI, mild MR. In the setting of marked increase in LV wall thickness, YULISA with septal contact, and increased LVOT gradient, further evaluation for HCM is recommended with cardiac MRI (HCM protocol). Electronically signed by : Chelsi Valdez MD 08/04/2023 18:47:46
--- NOTE | 2023-07-29 11:13 | EXP.CARD.CON ---
History of Present Illness History of Present Illness Consult date: 07/29/23 Requesting physician: Simran Wilson Consult reason: chest pain Chief complaint: chest pain History of present illness: This is a 48-year-old -[place] gentleman who presented to the emergency department with complaints of chest pain. He has a past medical history of hypertension, hyperlipidemia and type 2 diabetes. He has been medically noncompliant and not been on any medications for quite some time. The patient states that he was at work yesterday when he had sudden onset of chest pain. He states that this is in the central aspect of his chest. He describes this as a sharp piercing sensation. It radiated to his back and the left side of his neck. Associated with shortness of breath, nausea and clamminess. He rates this an 8 out of 10 in intensity. It is worse with exertion and nothing really helps to improve the pain. He states that it lasted all day and he decided to come into the emergency department. The patient does have an elevated troponin consistent with a non-STEMI with an abnormal EKG. [facility] Disclaimer: The information contained in this section may have been updated after the patient was seen, as this information can be updated by other users. Medical History (Updated 07/29/23 @ 12:47 by Suly Siddiqui APRN) Angina pectoris Non-STEMI (non-ST elevated myocardial infarction) History of left heart catheterization (LHC) Heart murmur Cardiomyopathy Sleep apnea Hyperlipemia Hypertension Diabetes Surgical History (Updated 07/28/23 @ 22:58 by Sofia Loving RN) H/O rotator cuff surgery History of thyroidectomy History of total right knee replacement Family History (Updated 07/28/23 @ 22:59 by Sofia Loving RN) Other Family history of hyperlipidemia Family history of hypertension Social History (Updated 07/28/23 @ 22:30 by Moustapha Khan MD) Smoking Status: Current every day smoker alcohol intake: current current occupational status: unemployed Travel in the last 8 weeks: None Review of Systems Review of Systems Review of systems:: pertinent systems reviewed and negative unless documented below Constitutional Constitutional: Reports system reviewed and no additional complaints, except as documented and Reports lethargy Eyes Eyes: Reports system reviewed and no additional complaints, except as documented ENT Ears, Nose, Mouth, and Throat: Reports system reviewed and no additional complaints, except as documented *Cardiovascular Cardiovascular: Reports system reviewed and no additional complaints, except as documented, Reports chest pain, Reports dyspnea, Reports dyspnea on exertion and Reports radiating jaw, neck or arm pain (neck) *Respiratory Respiratory: Reports system reviewed and no additional complaints, except as documented, Reports dyspnea and Reports dyspnea on exertion *Gastrointestinal Gastrointestinal: Reports system reviewed and no additional complaints, except as documented and Reports nausea *Genitourinary Genitourinary: Reports system reviewed and no additional complaints, except as documented *Musculoskeletal Musculoskeletal: Reports system reviewed and no additional complaints, except as documented Integumentary/Breasts Skin/Breast: Reports system reviewed and no additional complaints, except as documented *Neurologic Neurologic: Reports system reviewed and no additional complaints, except as documented Psychiatric Psychiatric: Reports system reviewed and no additional complaints, except as documented Endocrine Endocrine: Reports system reviewed and no additional complaints, except as documented Hematologic/Lymphatic Hematologic/Lymphatic: Reports system reviewed and no additional complaints, except as documented Allergic/Immunologic Allergic/Immunologic: Reports system reviewed and no additional complaints, except as documented Exam Data for Last 24 hours Vital signs and Labs for Last 24 Hours: Temp Pulse Resp BP Pulse Ox O2 Del Method 100.2 F H 80 20 153/74 H 99 Room Air 07/29/23 07:29 07/29/23 08:00 07/29/23 07:29 07/29/23 07:29 07/29/23 07:29 07/29/23 09:00 Laboratory Results - last 24 hr 07/28/23 18:40: WBC 10.7, RBC 5.14, Hgb 14.6, Hct 45.3, MCV 88.3, MCH 28.5, MCHC 32.3, RDW 14.8, Plt Count 194, MPV 7.9, Neut % (Auto) 75.6, Lymph % (Auto) 13.0, [place] % (Auto) 7.6, Eos % (Auto) 0.6, Baso % (Auto) 3.2 H, Neut # (Auto) 8.1 H, Lymph # (Auto) 1.4, [place] # (Auto) 0.8, Eos # (Auto) 0.1, Baso # (Auto) 0.3 H, Sodium 137, Potassium 3.7, Chloride 102, Carbon Dioxide 26, Anion Gap 12.7, BUN 13, Creatinine 1.10, Estimated Creat Clear 149, Estimated GFR 71, Est GFR ( Amer) 86, Glucose 138 H, Calcium 9.2, Magnesium 1.2 L, Total Bilirubin 0.6, AST 30, ALT 27, Alkaline Phosphatase 53, Troponin I 0.04 H, NT-Pro-B Natriuret Pep 964 H, Total Protein 7.7, Albumin 4.4, Globulin 3.3 H, Albumin/Globulin Ratio 1.3, Triglycerides 89, Cholesterol 202 H, LDL Cholesterol Direct 137.12 H, VLDL Cholesterol 18, HDL Cholesterol 29 L, Cholesterol/HDL Ratio 7.0 H, Lipase 43, TSH 0.06 L, Thyroxine (T4) 6.2 07/28/23 21:27: Troponin I 0.05 H 07/29/23 00:19: Troponin I 0.04 H 07/29/23 06:17: WBC 11.3 H, RBC 4.91, Hgb 13.9 L, Hct 43.5, MCV 88.5, MCH 28.2, MCHC 31.9, RDW 14.7, Plt Count 171, MPV 7.8, Neut % (Auto) 69.4, Lymph % (Auto) 19.2, [place] % (Auto) 9.9 H, Eos % (Auto) 0.5, Baso % (Auto) 1.1, Neut # (Auto) 7.8, Lymph # (Auto) 2.2, [place] # (Auto) 1.1 H, Eos # (Auto) 0.1, Baso # (Auto) 0.1, PT 12.4, INR 1.16 H, Sodium 138, Potassium 3.5, Chloride 105, Carbon Dioxide 25, Anion Gap 11.5, BUN 14, Creatinine 1.00, Estimated Creat Clear 165, Estimated GFR 79, Est GFR ( Amer) 96, Glucose 110 H D, Calcium 8.5, Phosphorus 4.3, Magnesium 1.7 D, Total Bilirubin 0.6, AST 26, ALT 20 D, Alkaline Phosphatase 49, Total Protein 7.1, Albumin 3.9 D, Globulin 3.2, Albumin/Globulin Ratio 1.2, Triglycerides 87, Cholesterol 181, LDL Cholesterol Direct 124.93, VLDL Cholesterol 17, HDL Cholesterol 25 L, Cholesterol/HDL Ratio 7.2 H, 25-OH Vitamin D Total 22.4 L, TSH 0.12 L D, Free T4 Index 1.7 L, Thyroxine (T4) 5.3 L, T3 Uptake 32 I & O for Last 24 hours: Intake & Output 07/26/23 07/27/23 07/28/23 07/29/23 23:59 23:59 23:59 23:59 Intake Total 240 / 240 Output Total 300 / 300 Balance -60 / -60 Weight 291 lb 291 lb 1.6 oz Narrative: EKG is sinus rhythm with septal GA pattern and T wave inversion. There is left anterior fascicular block and a rate of 94 bpm. Constitutional Constitutional: no acute distress and obese *Routine HEENT Exam Head: Present normocephalic and atraumatic ENT: Present mucous membranes moist *Routine Neck Exam Neck: Present supple, full ROM and normal carotid upstroke; Absent JVD, carotid bruit or lymphadenopathy *Routine Respiratory Exam Respiratory: Present CTA bilaterally, normal respiratory effort, able to speak in complete sentences and symmetric chest movement *Routine Cardiovascular Exam Cardiovascular: Present RRR, Normal S1 and Normal S2; Absent murmur or gallop *Routine Abdominal Exam Abdominal: Present soft and normoactive bowel sounds; Absent tenderness, distended or organomegaly *Routine Extremities Exam Extremities: Present full ROM, pulses intact and normal capillary refill; Absent cyanosis, clubbing or edema *Routine Skin Exam Skin: Present intact and warm; Absent erythema *Routine Neurological Exam Neurological: Present alert, oriented X3 and CN II-XII intact; Absent sensory deficit or motor deficit Routine Psychiatric Exam Psychiatric: Present normal affect Meds Home Medications and Allergies Home Medications Medication Instructions Recorded Confirmed Type No Known Home Medications 07/29/23 07/29/23 History New Prescriptions to Start Prescriptions: Allergies Allergy/AdvReac Type Severity Reaction Status Date / Time No Known Allergies Allergy Verified 07/28/23 23:28 Assessment and Plan *Assessment and plan (1) Non-STEMI (non-ST elevated myocardial infarction): Status: Acute Category: Medical Code(s): I21.4 - Non-ST elevation (NSTEMI) myocardial infarction (2) Angina pectoris: Status: Acute Category: Medical Code(s): I20.9 - Angina pectoris, unspecified (3) Hypertension: Status: Acute Qualifiers: Hypertension type: unspecified Qualified Code(s): I10 - Essential (primary) hypertension Category: Medical Code(s): I10 - Essential (primary) hypertension (4) Obesity (BMI 30-39.9): Status: Acute Category: Medical Code(s): E66.9 - Obesity, unspecified (5) Mass of thyroid gland: Status: Acute Category: Medical Code(s): E07.9 - Disorder of thyroid, unspecified (6) Hyperlipemia: Status: Acute Qualifiers: Hyperlipidemia type: mixed hyperlipidemia Qualified Code(s): E78.2 - Mixed hyperlipidemia Category: Medical Code(s): E78.5 - Hyperlipidemia, unspecified (7) Diabetes: Status: Acute Qualifiers: Diabetes mellitus type: type 2 Diabetes mellitus skilled nursing insulin use: without manager intermediate use Diabetes mellitus complication status: without complication Qualified Code(s): E11.9 - Type 2 diabetes mellitus without complications Category: Medical Code(s): E11.9 - Type 2 diabetes mellitus without complications Plan Plan: 1. Patient was made to the hospital with chest pain. He was found to have an elevated troponin consistent with a non-STEMI. Will plan to proceed with left cardiac catheterization today to evaluate for his coronary artery disease. 2. The patient has been educated on the risk and benefits of proceeding with left cardiac catheterization. The patient verbalized understanding and is agreeable to proceeding with the procedure. 3. Head CTA shows severe calcified and noncalcified atherosclerotic disease of the right intracranial ICA resulting in severe stenosis of the ophthalmic and clinoid segments. Will also plan to proceed with a carotid angiogram at the time of his left cardiac catheterization to further evaluate carotid artery stenosis. 4. The patient has been educated on the risk and benefits of proceeding with carotid angiogram. The patient verbalized understanding and is agreeable to proceeding with the procedure. 5. The patient will be n.p.o. after breakfast in preparation for left cardiac catheterization and carotid angiogram. 6. Start Coreg 6.25 mg p.o. twice daily for the non-STEMI and blood pressure control. 7. Aspirin 81 mg daily. 8. His LDL goal is less than 55. His LDL is 124. Will start him on Lipitor 80 mg p.o. nightly. 9. The patient reports a history of diabetes. He is currently untreated. Will defer management of this to the hospitalist. 11. The patient's CT chest did show a multi nodular thyroid goiter measuring 12.4 cm craniocaudal by 3.8 cm AP by 4.3 cm transverse resulting in partial obstruction of the thoracic outlet and a mass effect on the trachea. The patient will need to be referred to ENT for further evaluation of the multi nodular thyroid. He did have a dedicated thyroid ultrasound today as well which is pending. 12. Will obtain an echocardiogram to evaluate his LV function. 13. Further recommendations will be made pending the patient's response to treatment and the results of his left cardiac catheterization and carotid angiogram today. Thank you for the opportunity to help participate in the care of this patient. All recommendations and orders are per Dr. Valdez.
--- NOTE | 2023-07-29 11:18 | PC.NURSE ---
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
[2023-07-29] MEDS: LIDOCAINE 1% 10ML MDV 20 ML IJ (11:23)
[2023-07-29] MEDS: 0.9 % SODIUM CHLORIDE 500 ML 25 ML IV (11:24)
[2023-07-29] MEDS: diphenhydrAMINE 50MG/ML VIAL 50 MG IV (11:24)
[2023-07-29] MEDS: HEPARIN 1,000 UNITS/500ML NS (CATH LAB) 3000 UNIT IV (11:24)
[2023-07-29] MEDS: MIDAZOLAM HCL 1MG/1ML 5ML VIAL 1 MG IV (11:45)
[2023-07-29] MEDS: FENTANYL 100MCG/2ML VIAL 50 MCG IV (11:46)
[2023-07-29 11:48] LABS: Hemoglobin A1C 6.3 % (4.0-6.0)
[2023-07-29] MEDS: IOPAMIDOL-370 (76%);100ML BOTTLE 175 ML IV (14:42)
[2023-07-29] MEDS: CARVEDILOL 6.25MG TABLET 6.25 MG PO (14:45)
--- NOTE | 2023-07-29 15:56 | EXP.DC.SUM ---
General Admission date:: 07/28/23 Discharge date: 07/29/23 HPI HPI HPI: This is a 48-year-old male with history of hypertension, hyperlipidemia, type 2 diabetes, presumed CHF, hypothyroidism, medical non complaint presented to ED for evaluation of chest pain. It started around 1 PM just a couple hours prior to arrival. It was at rest. It is exertional, nonpositional. Associated with shortness of breath and nausea without vomiting. No diaphoresis. States that a few days prior to this, he also had episode where his right hand clenched, left lower extremity felt weak, had difficulty finding words and this lasted for couple minutes. patient admitted for further work up. Hospital Course Hospital Course Hospital Course: 48-year-old male with history of hypertension, hyperlipidemia, type 2 diabetes, presumed CHF, hypothyroidism, medical non complaint presented to ED for evaluation of chest pain. It started around 1 PM just a couple hours prior to arrival. on arrival received loading aspirin, EKG showed non specific ST changed. CTA chest negative for PE. troponin slightly moved. Cardiology consulted. discussed with ED. Agreed for admission. Plan as follow: patient had cardiac cath performed, patient did not have stent placed, patient was started on ASA, Statin and coreg 6.25mg BID -Multinodular thyroid disease: Right thyroid lobe mass, Patient has a history of hypothyroidism, partial thyroidectomy. s/p FNA biopsy and ENT follow up, patient has ENT physician already established Exam Data for Last 24 hours Vital signs and Labs for Last 24 Hours: Temp Pulse Resp BP Pulse Ox O2 Del Method 97.8 F 67 18 160/98 H 96 Room Air 07/29/23 13:20 07/29/23 15:35 07/29/23 15:35 07/29/23 15:35 07/29/23 14:05 07/29/23 15:00 Laboratory Results - last 24 hr 07/28/23 18:40: WBC 10.7, RBC 5.14, Hgb 14.6, Hct 45.3, MCV 88.3, MCH 28.5, MCHC 32.3, RDW 14.8, Plt Count 194, MPV 7.9, Neut % (Auto) 75.6, Lymph % (Auto) 13.0, [place] % (Auto) 7.6, Eos % (Auto) 0.6, Baso % (Auto) 3.2 H, Neut # (Auto) 8.1 H, Lymph # (Auto) 1.4, [place] # (Auto) 0.8, Eos # (Auto) 0.1, Baso # (Auto) 0.3 H, Sodium 137, Potassium 3.7, Chloride 102, Carbon Dioxide 26, Anion Gap 12.7, BUN 13, Creatinine 1.10, Estimated Creat Clear 149, Estimated GFR 71, Est GFR ( Amer) 86, Glucose 138 H, Calcium 9.2, Magnesium 1.2 L, Total Bilirubin 0.6, AST 30, ALT 27, Alkaline Phosphatase 53, Troponin I 0.04 H, NT-Pro-B Natriuret Pep 964 H, Total Protein 7.7, Albumin 4.4, Globulin 3.3 H, Albumin/Globulin Ratio 1.3, Triglycerides 89, Cholesterol 202 H, LDL Cholesterol Direct 137.12 H, VLDL Cholesterol 18, HDL Cholesterol 29 L, Cholesterol/HDL Ratio 7.0 H, Lipase 43, TSH 0.06 L, Thyroxine (T4) 6.2 07/28/23 21:27: Troponin I 0.05 H 07/29/23 00:19: Troponin I 0.04 H 07/29/23 06:17: WBC 11.3 H, RBC 4.91, Hgb 13.9 L, Hct 43.5, MCV 88.5, MCH 28.2, MCHC 31.9, RDW 14.7, Plt Count 171, MPV 7.8, Neut % (Auto) 69.4, Lymph % (Auto) 19.2, [place] % (Auto) 9.9 H, Eos % (Auto) 0.5, Baso % (Auto) 1.1, Neut # (Auto) 7.8, Lymph # (Auto) 2.2, [place] # (Auto) 1.1 H, Eos # (Auto) 0.1, Baso # (Auto) 0.1, PT 12.4, INR 1.16 H, Sodium 138, Potassium 3.5, Chloride 105, Carbon Dioxide 25, Anion Gap 11.5, BUN 14, Creatinine 1.00, Estimated Creat Clear 165, Estimated GFR 79, Est GFR ( Amer) 96, Glucose 110 H D, Hemoglobin A1c 6.3 H, Calcium 8.5, Phosphorus 4.3, Magnesium 1.7 D, Total Bilirubin 0.6, AST 26, ALT 20 D, Alkaline Phosphatase 49, Total Protein 7.1, Albumin 3.9 D, Globulin 3.2, Albumin/Globulin Ratio 1.2, Triglycerides 87, Cholesterol 181, LDL Cholesterol Direct 124.93, VLDL Cholesterol 17, HDL Cholesterol 25 L, Cholesterol/HDL Ratio 7.2 H, 25-OH Vitamin D Total 22.4 L, TSH 0.12 L D, Free T4 Index 1.7 L, Thyroxine (T4) 5.3 L, T3 Uptake 32 I & O for Last 24 hours: Intake & Output 07/26/23 07/27/23 07/28/23 07/29/23 23:59 23:59 23:59 23:59 Intake Total 240 / 240 Output Total 300 / 300 Balance -60 / -60 Weight 131.995 kg 132.041 kg Constitutional Constitutional: no acute distress *Routine HEENT Exam Head: Present normocephalic Eye: Present EOMI and PERRL ENT: Present mucous membranes moist *Routine Neck Exam Neck: Present supple; Absent lymphadenopathy *Routine Respiratory Exam Respiratory: Present CTA bilaterally *Routine Cardiovascular Exam Cardiovascular: Present RRR *Routine Abdominal Exam Abdominal: Present soft and normoactive bowel sounds; Absent tenderness *Routine Extremities Exam Extremities: Absent cyanosis, clubbing or edema *Routine Skin Exam Skin: Present warm; Absent rash *Routine Neurological Exam Neurological: Present alert and oriented X3 Results Data Completed and Pending Labs on day of discharge: Labs from last 24 hours 07/29/23 07/29/23 07/28/23 06:17 00:19 21:27 WBC 11.3 H RBC 4.91 Hgb 13.9 L Hct 43.5 MCV 88.5 MCH 28.2 MCHC 31.9 RDW 14.7 Plt Count 171 MPV 7.8 Neut % (Auto) 69.4 Lymph % (Auto) 19.2 [place] % (Auto) 9.9 H Eos % (Auto) 0.5 Baso % (Auto) 1.1 Neut # (Auto) 7.8 Lymph # (Auto) 2.2 [place] # (Auto) 1.1 H Eos # (Auto) 0.1 Baso # (Auto) 0.1 PT 12.4 INR 1.16 H Sodium 138 Potassium 3.5 Chloride 105 Carbon Dioxide 25 Anion Gap 11.5 BUN 14 Creatinine 1.00 Estimated Creat Clear 165 Estimated GFR 79 Est GFR ( Amer) 96 Glucose 110 H D Hemoglobin A1c 6.3 H Calcium 8.5 Phosphorus 4.3 Magnesium 1.7 D Total Bilirubin 0.6 AST 26 ALT 20 D Alkaline Phosphatase 49 Troponin I 0.04 H 0.05 H NT-Pro-B Natriuret Pep Total Protein 7.1 Albumin 3.9 D Globulin 3.2 Albumin/Globulin Ratio 1.2 Triglycerides 87 Cholesterol 181 LDL Cholesterol Direct 124.93 VLDL Cholesterol 17 HDL Cholesterol 25 L Cholesterol/HDL Ratio 7.2 H Lipase 25-OH Vitamin D Total 22.4 L TSH 0.12 L D Free T4 Index 1.7 L Thyroxine (T4) 5.3 L T3 Uptake 32 07/28/23 18:40 WBC 10.7 RBC 5.14 Hgb 14.6 Hct 45.3 MCV 88.3 MCH 28.5 MCHC 32.3 RDW 14.8 Plt Count 194 MPV 7.9 Neut % (Auto) 75.6 Lymph % (Auto) 13.0 [place] % (Auto) 7.6 Eos % (Auto) 0.6 Baso % (Auto) 3.2 H Neut # (Auto) 8.1 H Lymph # (Auto) 1.4 [place] # (Auto) 0.8 Eos # (Auto) 0.1 Baso # (Auto) 0.3 H PT INR Sodium 137 Potassium 3.7 Chloride 102 Carbon Dioxide 26 Anion Gap 12.7 BUN 13 Creatinine 1.10 Estimated Creat Clear 149 Estimated GFR 71 Est GFR ( Amer) 86 Glucose 138 H Hemoglobin A1c Calcium 9.2 Phosphorus Magnesium 1.2 L Total Bilirubin 0.6 AST 30 ALT 27 Alkaline Phosphatase 53 Troponin I 0.04 H NT-Pro-B Natriuret Pep 964 H Total Protein 7.7 Albumin 4.4 Globulin 3.3 H Albumin/Globulin Ratio 1.3 Triglycerides 89 Cholesterol 202 H LDL Cholesterol Direct 137.12 H VLDL Cholesterol 18 HDL Cholesterol 29 L Cholesterol/HDL Ratio 7.0 H Lipase 43 25-OH Vitamin D Total TSH 0.06 L Free T4 Index Thyroxine (T4) 6.2 T3 Uptake DS: Diagnosis Discharge Diagnosis (1) Non-STEMI (non-ST elevated myocardial infarction): Status: Acute Code(s): I21.4 - Non-ST elevation (NSTEMI) myocardial infarction (2) Angina pectoris: Status: Acute Code(s): I20.9 - Angina pectoris, unspecified (3) Hypertension: Status: Acute Code(s): I10 - Essential (primary) hypertension Qualifiers: Hypertension type: unspecified Qualified Code(s): I10 - Essential (primary) hypertension (4) Obesity (BMI 30-39.9): Status: Acute Code(s): E66.9 - Obesity, unspecified (5) Mass of thyroid gland: Status: Acute Code(s): E07.9 - Disorder of thyroid, unspecified (6) Hyperlipemia: Status: Acute Code(s): E78.5 - Hyperlipidemia, unspecified Qualifiers: Hyperlipidemia type: mixed hyperlipidemia Qualified Code(s): E78.2 - Mixed hyperlipidemia (7) Diabetes: Status: Acute Code(s): E11.9 - Type 2 diabetes mellitus without complications Qualifiers: Diabetes mellitus type: type 2 Diabetes mellitus group home insulin use: without 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 Diabetes mellitus complication status: without complication Qualified Code(s): E11.9 - Type 2 diabetes mellitus without complications Meds Home Medications and Allergies Home Medications Medication Instructions Recorded Confirmed Type aspirin 81 mg tablet,delayed 81 mg PO DAILY 30 days #30 tabs 07/29/23 Rx release atorvastatin 40 mg tablet 80 mg (2 x 40 mg) PO HS 30 days 07/29/23 Rx #60 tabs carvedilol 6.25 mg tablet 6.25 mg PO BID 30 days #60 tabs 07/29/23 Rx New Prescriptions to Start Prescriptions: aspirin Steve,Irfan atorvastatin Steve,Irfan carvedilol Steve,Irfan Allergies Allergy/AdvReac Type Severity Reaction Status Date / Time No Known Allergies Allergy Verified 07/28/23 23:28 Discharge Plan Disposition Patient Disposition: Home, Self-Care Condition: Good Follow up Plan Follow up with: Benny Krishnan MD [Staff Physician] - Enter time for follow up (please call for new patient appointment) Hussein Brown MD [Staff Physician] - 08/05/23 9:45 am Prescriptions/Medication Reconciliation: New atorvastatin 40 mg Tablet 80 mg PO HS 30 Days Qty: 60 0RF carvedilol 6.25 mg Tablet 6.25 mg PO BID 30 Days Qty: 60 0RF aspirin 81 mg Tablet,Delayed Release (Dr/Ec) 81 mg PO DAILY 30 Days Qty: 30 0RF Problem Reconciliation Problems Reviewed?: Yes Patient Discharge Instructions ACTIVITY: Continue current activity DIET: low fat, low cholesterol Patient Instructions: DI for Chest Pain Providers Primary Care Provider: Provider,Referral Admit Provider: Simran Wilson Attending Provider: Simran Wilson
--- NOTE | 2023-07-29 16:14 | HMH.PHAINT1 ---
Pharmacy Intervention Comments: DISCHARGE MEDICATION COUNSELING PROVIDED. DISCUSSED THE FOLLOWING NEW MEDICATIONS: -ASPIRIN (BLOOD THINNER, DAILY, TAKE WITH FOOD, MAY CAUSE UPSET STOMACH, BLEED/BRUISE RISK, BLEED LOCATION/APPEARANCE) -ATORVASTATIN (FOR CHOLESTEROL, AT BEDTIME, TAKE TWO OF THE 40 MG TABLETS TO EQUAL 80 MG, WATCH FOR MUSCLE PAIN/WEAKNESS AND IF THIS OCCURS TALK TO THE MD). -CARVEDILOL (BETA JANIE FOR BLOOD PRESSURE/HEART RATE, MAY CAUSE DIZZINESS, LIGHTHEADEDNESS, FATIGUE, TAKE WITH FOOD TWICE DAILY, MAY LOWER BP AND SLOW HEART RATE) PATIENT VERBALIZED NO QUESTIONS AT THIS TIME.
--- NOTE | 2023-07-30 14:35 | CARE MANAGER ---
Patient called back and we discussed discharge related to hospital stay. Patient reports that he tried to get an appointment with Dr. Krishnan but they are not taking new Medicaid patients so he is going to call Dr. Sotelo. He is working on getting his Medicaid currently. Denies questions or concerns and has medications. ELDER Nowak
== END 2023-07-29 16:48 | disposition home or self-care (01) ==
LOC: ER 19:31 → 2ND 22:17
PROVIDERS: Internal Medicine; Nurse Practitioner Family; Admitting Provider Internal Medicine; Emergency Provider Emergency Medicine; Visit Provider Internal Medicine
DX: I21.4 Non-ST elevation (NSTEMI) myocardial infarction (principal); I11.0 Hypertensive heart disease with heart failure; G47.30 Sleep apnea, unspecified; I20.89 Other forms of angina pectoris; I50.9 Heart failure, unspecified; I42.9 Cardiomyopathy, unspecified; E11.9 Type 2 diabetes mellitus without complications; F17.210 Nicotine dependence, cigarettes, uncomplicated; I65.23 Occlusion and stenosis of bilateral carotid arteries; E03.9 Hypothyroidism, unspecified
CPT/HCPCS: 10005; 36224; 36226; 36415; 70450; 70496; 70498; 71045; 71275; 76536; 80053; 80061; 82306; 83036; 83690; 83735; 83880; 84100; 84436; 84443; 84479; 84484; 85025; 85610; 93005; 93306; 93458; 99152; 99285; C1725; C1769; C1894; G0378; J1644; J3475; Q9967

== ENCOUNTER 2023-09-29 19:24 | Emergency (ER) | payer SELFPAY ==
[2023-09-29 19:25] VITALS: BP 199/117; PULSE 100; RESP 20; TEMP 37; O2SAT 97; BMI 37.2
--- NOTE | 2023-09-29 19:39 | XR_ITS ---
PROCEDURE INFORMATION: Exam: XR Right Knee Exam date and time: 09/29/2023 7:38 PM Age: 48 years old Clinical indication: Pain; Right; Prior surgery; Surgery date: 6+ months; Surgery type: Partial knee replacement; Additional info: Pain, posterior knee TECHNIQUE: Imaging protocol: Radiologic exam of the right knee. Views: 3 views. COMPARISON: No relevant prior studies available. FINDINGS: Bones/joints: Medial unicompartmental knee replacement. Intact surgical hardware. Medial angulation of the medial femoral condyle prosthesis. No identifiable perihardware loosening. No acute fracture. Mild lateral patellofemoral compartment osteoarthritis. Joint effusion. Soft tissues: Normal. IMPRESSION: 1. Medial unicompartmental knee replacement. Medial angulation of the medial femoral condyle prosthesis. No identifiable perihardware loosening. 2. Joint effusion. No acute osseous findings.
--- NOTE | 2023-09-29 19:42 | HMH.EDGENADL ---
Discharge Plan Disposition Patient Disposition: Home, Self-Care Condition: Good Prescriptions Prescriptions: New naproxen 500 mg tablet 500 mg PO BID Qty: 20 0RF No Action carvedilol 6.25 mg tablet 6.25 mg PO BID Qty: 60 5RF atorvastatin 80 mg tablet 80 mg PO HS Qty: 90 3RF omeprazole 40 mg capsule,delayed release(DR/EC) 40 mg PO QDAY Qty: 90 3RF Rx Instructions: swallow whole; do not crush, chew, dissolve, or cut/break aspirin 81 mg Tablet,Delayed Release (Dr/Ec) 81 mg PO DAILY 30 Days Qty: 30 0RF Referrals Follow up/Referrals: Romie Crow DO [Staff Physician] - See instructions Provider,Referral, [Primary Care Provider] - See instructions Activity Restrictions/Add. Instructions Additional Instructions/Restrictions: You were evaluated in the emergency department today. Please follow-up closely with orthopedics for reassessment. 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 Make sure you also take your blood pressure medication at home. Follow-up closely with orthopedics for reassessment. Return to the emergency department for new or worsening symptoms, such as redness, warmth, fevers, or other concerns. Clinical Impressions Clinical Impression: Acute pain of right knee, Effusion of right knee Stand Alone Forms Stand Alone Forms: Work/School Release Instructions Patient Instructions: DI for Knee Effusion, DI for Knee Pain Print Language Print Language: Greek Discharge ED Provider: Gladis Casillas General Adult HPI General Chief complaint: Extremity Injury, Lower Stated complaint: right knee is hurting Time Seen by Provider: 09/29/23 19:30 Mode of Arrival: Wheelchair Source of Information: Patient Limitations: No Limitations Description of Symptoms (Recalled from ER Triage Doc. by RN): Patient reports that at approximately 4pm patient began experiencing 8/10 pain to the right knee. He had a total knee replacement in 2019 of this knee. He has had no falls nor injury that he is aware of. Reports that is is a sharp pain that is especially noted during extension of the knee. Denies swelling, other pain, fevers. History of Present Illness HPI narrative: This patient is a 48-year-old male with a history of hypertension, hyperlipidemia, obesity, SHAHID, CAD, prior NSTEMI, and cardiomyopathy presenting to the emergency department for evaluation with concern for atraumatic right knee pain. Patient reports that he had been standing at work when he suddenly started having pain in his right knee. He states that it felt like his knee needed to pop but he was not able to get it to pop. No falls or injuries noted. He states his pain is 8 out of 10 and in the back of his knee, especially with full extension. He states that it feels like there is something wrong with his hamstring. He is still ambulatory. No redness, warmth, or skin color changes. No calf pain, swelling, or tenderness. No history of blood clots or clotting disorders. He has a history of prior knee surgery in 2019. No fevers or infectious symptoms. Related Data Previous Rx's ?Medication ?Instructions ?Recorded aspirin 81 mg tablet,delayed 81 mg PO DAILY 30 days #30 tabs 07/29/23 release atorvastatin 80 mg tablet 80 mg PO HS #90 tabs 08/05/23 carvedilol 6.25 mg tablet 6.25 mg PO BID #60 tabs 08/05/23 omeprazole 40 mg capsule,delayed 40 mg PO QDAY #90 caps 08/05/23 release naproxen 500 mg tablet 500 mg PO BID #20 tabs 09/29/23 Allergies Allergy/AdvReac Type Severity Reaction Status Date / Time No Known Allergies Allergy Verified 08/05/23 09:44 [facility] Disclaimer: The information contained in this section may have been updated after the patient was seen, as this information can be updated by other users. Medical History Stenosis of carotid artery Coronary artery disease SHAHID (obstructive sleep apnea) Angina pectoris Non-STEMI (non-ST elevated myocardial infarction) History of left heart catheterization (LHC) Heart murmur Cardiomyopathy Sleep apnea Hyperlipemia Hypertension Diabetes Surgical History H/O cardiac catheterization H/O rotator cuff surgery History of thyroidectomy History of total right knee replacement Family History Other Family history of hyperlipidemia Family history of hypertension Social History Smoking Status: Current every day smoker alcohol intake: current current occupational status: unemployed Travel in the last 8 weeks: None ROS Obtained: Yes All systems reviewed & no additional complaints except as documented Physical Exam General General appearance: alert and in no apparent distress Head Head exam: atraumatic and normocephalic Eye Eye exam: Present normal appearance, PERRL and EOMI ENT ENT exam: Present normal exam, normal oropharynx, mucous membranes moist and normal external ear exam Neck Neck exam: Present normal inspection, full ROM and trachea midline; Absent tenderness Chest Chest inspection: Present normal inspection and symmetric chest wall rise; Absent tenderness Respiratory Respiratory exam: Present normal lung sounds bilaterally; Absent respiratory distress, wheezes, stridor or accessory muscle use Cardiovascular Cardiovascular exam: Present regular rate and normal rhythm Abdominal Exam Abdominal exam: Present soft; Absent distention, tenderness or guarding Extremities Exam Extremities exam: Present full ROM (Preserved range of motion of the right knee with pain in full extension), tenderness (Tenderness to palpation of the posterior knee as well as the lateral knee joint line), normal capillary refill and other (No redness, warmth, or skin color changes. No significant joint effusion. No calf pain, tenderness, or swelling.); Absent edema, joint swelling or calf tenderness Back Exam Back exam: Present normal inspection and full ROM; Absent tenderness Neurological Exam Neurological exam: Present alert, oriented X3, CN II-XII intact and normal gait; Absent motor sensory deficit Psychiatric Psychiatric exam: Present anxious Skin Skin exam: Present warm and dry Medical Decision Making Medical Records Medical records reviewed: Yes I reviewed the patient's medical records. [place] Inquiry Pt receiving controlled substance: No Vital Signs: 09/29/23 19:25 09/29/23 21:30 Temperature 98.6 F 98.1 F Temperature Source Oral Oral Pulse Rate 86 Pulse Rate [Left Radial] 100 H Respiratory Rate 20 18 Blood Pressure 174/104 H Blood Pressure [Right Arm] 199/117 H Blood Pressure Mean [Right Arm] 144 Blood Pressure Source Automatic Cuff Blood Pressure Source [Right Arm] Automatic Cuff Blood Pressure Position Sitting Blood Pressure Position [Right Arm] Sitting 02 Sat by Pulse Oximetry 97 Oxygen Delivery Method Room Air Room Air Lab Data Lab results reviewed: Yes I reviewed the patient's lab results. Orders (Tests/Meds): ED MEDICATIONS Discontinued Medications Generic Name Dose Route Start Last Admin Trade Name Freq PRN Reason Stop Dose Admin Acetaminophen 1,000 mg 09/29/23 19:40 09/29/23 19:55 Acetaminophen 500mg Tab PO 09/29/23 19:41 1,000 mg ONCE ONE Administration Ketorolac Tromethamine 30 mg 09/29/23 19:39 09/29/23 19:55 Ketorolac 30mg/Ml Vial IM 09/29/23 19:40 30 mg ONCE ONE Administration ORDERS Category Date Time Status XR knee RT 3V Stat Exams 09/29/23 19:39 Completed Medical Decision Narrative: In summary, this patient is a 48-year-old male presenting to the Emergency Department for evaluation of right knee pain. Differential diagnoses considered include but are not limited to Guerrero's cyst, contusion, strain/sprain, hardware malfunction, osteoarthritis, gouty arthritis, septic arthritis. Ruling out the most morbid conditions drove assessment. It should be noted patient's history includes hypertension, hyperlipidemia, obesity which are not at goal therapy. This complicates all aspects of care by increasing patient's risk for morbidity. On exam, the patient is well-appearing. He has no significant redness, warmth of the right knee and range of motion is preserved with pain and end range of motion of extension. He does have small joint effusion. He has no calf pain, tenderness, or swelling. He is neurovascularly intact distally. Given all of these things, doubt septic arthritis, gouty arthritis, or DVT as a cause of the patient's pain. I feel that these are unlikely based on history and exam. I feel is likely musculoskeletal in nature given his exam and the history of pain with full extension. Workup included x-rays of the right knee. Patient was given IM Toradol and oral Tylenol for symptomatic improvement. I independently interpreted x-ray prior to the radiologist read and noted no acute fracture or bony abnormality. Please see their read for final interpretation. Patient is ambulatory in the ED. Ultimately I had a long discussion with the patient at this time and advised that I feel he is unlikely to have an infected joint given that he has intact range of motion, is able to bear weight, and has no significant redness or warmth. He states he agrees and would not want to undergo joint tap. He states that he thinks that he just needs to wrap it for support and see how it goes. I advised that he follow-up very closely with orthopedics and gave him strict return precautions should he develop any redness, warmth, fevers, or other concerns. Ultimately given reassuring exam, I feel it is appropriate for discharge home with instructions for supportive management of knee effusion/strain and with close follow-up. Critical Care Critical Care Time Critical Care Time: No
[2023-09-29] MEDS: ACETAMINOPHEN 500MG TAB 1000 MG PO (19:55)
[2023-09-29] MEDS: KETOROLAC 30MG/ML VIAL 30 MG IM (19:55)
--- NOTE | 2023-09-29 21:09 | PC.NURSE ---
Rolan wrap applied to pts right knee. Pt was able to get up and ambulate without assistance. CR
[2023-09-29 21:30] VITALS: BP 174/104; PULSE 86; RESP 18; TEMP 36.7; O2SAT 97
== END 2023-09-29 21:32 | disposition home or self-care (01) ==
PROVIDERS: Emergency Provider Emergency Medicine
DX: M25.561 Pain in right knee (principal); M25.461 Effusion, right knee
CPT/HCPCS: 73562; 96372; 99283; J1885

== ENCOUNTER 2024-04-03 16:29 | Emergency (ER) | payer OTHER, SELFPAY ==
[2024-04-03 16:37] VITALS: BP 193/104; PULSE 90; RESP 18; TEMP 36.9; O2SAT 98; BMI 34.9
--- NOTE | 2024-04-03 16:47 | PC.NURSE ---
Patient hypertensive in triage. Med reconciliation completed. Patient states, Those are all the medication I'm prescribed, but I don't take any of them but my Omeprazole. That's why my blood pressure is so high. Patient educated on the importance of taking his home medications as prescribed. Acknowledged understanding. Significant other present for education.
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
[2024-04-03] MEDS: ACETAMINOPHEN 500MG TAB 1000 MG PO (18:43)
[2024-04-03 21:03] LABS: Basophils % 0.4 % (0.1-2.0); Eosinophils # 0.2 K/mm3 (0.0-0.4); Eosinophils % 1.6 % (0.1-12.0); Hematocrit 48.9 % (42.0-52.0); Hemoglobin 15.8 g/dL (14.1-18.0); Lymphocytes # 3.2 K/mm3 (0.7-4.5); Lymphocytes % 31.8 % (10-50); Mean Corpuscular HGB Conc 32.3 g/dL (31.8-35.4); Mean Corpuscular Volume 86.7 fl (80-94); Mean Platelet Volume 9.5 fl (7.4-10.4); Monocytes # 0.7 K/mm3 (0.1-1.0); Neutrophils # 5.9 K/mm3 (1.8-7.8); Neutrophils % 58.7 % (37.0-80.0); Platelet Count 185 K/mm3 (142-424); Red Blood Count 5.64 M/mm3 (4.60-6.20); Red Cell Distribution Width 14.7 % (11.5-17.5)
[2024-04-03 21:09] LABS: Lipase 72 U/L (23-300)
[2024-04-03 21:11] LABS: Alanine Aminotransferase 30 U/L (12-78); Albumin Level 4.6 g/dl (3.5-5.0); Albumin/Globulin Ratio 1.5 (1.1-1.8); Alkaline Phosphatase 62 U/L (38-126); Anion Gap 13.5 mEq/L (5-15); Aspartate Amino Transferase 33 U/L (17-59); Bilirubin,Total 0.4 mg/dl (0.2-1.3); Blood Urea Nitrogen 15 mg/dl (9-20); Carbon Dioxide 27 mmol/L (22.0-30.0); Chloride 105 mmol/L (98-107); Creatinine Clearance Estimated 198 mL/min (50-200); Estimated Glomerular Filt Rate 102 ml/min (>60); GFR (African American) 124 ML/MIN (>60); Glucose 180 mg/dl (74-100); Potassium 4.5 mmoL/L (3.5-5.1); Sodium 141 mmol/L (136-145); Total Protein,Serum 7.6 g/dl (6.3-8.2)
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
[2024-04-03 21:44] VITALS: BP 173/90; PULSE 77; RESP 18; TEMP 36.7; O2SAT 99
== END 2024-04-03 21:47 | disposition home or self-care (01) ==
PROVIDERS: Nurse Practitioner; Emergency Provider Emergency Medicine
DX: Z04.1 Encounter for examination and observation following transport accident (principal); M25.461 Effusion, right knee; R51.9 Headache, unspecified; M54.9 Dorsalgia, unspecified; M54.2 Cervicalgia; M25.561 Pain in right knee; R10.2 Pelvic and perineal pain; Z72.0 Tobacco use
CPT/HCPCS: 70450; 71045; 72125; 72128; 72131; 73562; 80053; 83690; 85025; 99284